=== PATIENT | male | born 1985 | race Caucasian/White ===

== ENCOUNTER 2023-06-13 17:07 | Emergency (ER) | payer MEDICAID ==
[~2023-06-13] VITALS: Ht 167.6 cm; Wt 76.2 kg
[~2023-06-13 17:07] MED LIST: ALBU8TAB INH; ALPR-624 PO; ATRIN INH; IPRA3AMP31 IH; OXCA300T4 PO; PALI3TAB3 PO; PROC-8 PO; RANI-648 PO
[2023-06-13 17:31] VITALS: PULSE 107; RESP 16; O2SAT 97
== END 2023-06-13 23:47 | disposition left against medical advice (07) ==
LOC: ER 17:08
DX: L08.89 Other specified local infections of the skin and subcutaneous tissue (principal); Z53.21 Procedure and treatment not carried out due to patient leaving prior to being seen by health care provider
CPT/HCPCS: 99281

== ENCOUNTER 2023-06-26 10:39 | Emergency (ER) | payer MEDICAID ==
[~2023-06-26] VITALS: Ht 167.6 cm; Wt 75.9 kg
[2023-06-26 11:19] VITALS: BP 131/72; PULSE 106; RESP 16; TEMP 98.1; O2SAT 98
== END 2023-06-26 15:47 | disposition left against medical advice (07) ==
LOC: ER 10:40
DX: M79.641 Pain in right hand (principal); Z53.21 Procedure and treatment not carried out due to patient leaving prior to being seen by health care provider; W25.XXXA Contact with sharp glass, initial encounter; Y93.89 Activity, other specified; Y92.89 Other specified places as the place of occurrence of the external cause; Y99.8 Other external cause status
CPT/HCPCS: 73130; 99281

== ENCOUNTER 2023-07-02 13:06 | Emergency (ER) | payer MEDICAID ==
[~2023-07-02] VITALS: Ht 167.6 cm; Wt 85.0 kg
[2023-07-02 13:37] VITALS: BP 138/85; PULSE 107; RESP 18; TEMP 97.8; O2SAT 98
[2023-07-02] MEDS ORDERED: LIDOcaine/epinephrine/tetracaine TOPICAL sol 3 ML syringe TOP ONE (15:10)
[2023-07-02] MEDS ORDERED: SULF1TAB49 PO (15:48)
--- NOTE | 2023-07-02 16:58 | NUR ---
pt left without receiving dc paperwork. Attempted to call pt, no answer, number in chart invalid.
== END 2023-07-02 17:02 | disposition home or self-care (01) ==
LOC: ER 13:06
DX: S60.420A Blister (nonthermal) of right index finger, initial encounter (principal); I10 Essential (primary) hypertension; J44.9 Chronic obstructive pulmonary disease, unspecified; F12.90 Cannabis use, unspecified, uncomplicated; Z88.8 Allergy status to other drugs, medicaments and biological substances; Z88.5 Allergy status to narcotic agent; Z88.6 Allergy status to analgesic agent; Z91.030 Bee allergy status; Z91.041 Radiographic dye allergy status; Z79.899 Other long term (current) drug therapy; X58.XXXA Exposure to other specified factors, initial encounter; Y93.89 Activity, other specified; Y92.89 Other specified places as the place of occurrence of the external cause; Y99.8 Other external cause status
CPT/HCPCS: 10140; 87070; 87077; 87186; 99284; J3490; 99283; A6449

== ENCOUNTER 2023-09-03 03:30 | Emergency (ER) | payer MEDICAID, OTHER ==
[~2023-09-03] VITALS: Ht 167.6 cm; Wt 75.0 kg
[2023-09-03 03:33] VITALS: BP 176/119; PULSE 89; RESP 20; TEMP 98; O2SAT 100
[2023-09-03] MEDS ORDERED: acetaminophen 1,000mg/100ml IV 100 ML IV STA (03:39)
[2023-09-03] MEDS ORDERED: ondansetron/PF 4mg/2ml inj IV ONE (03:45)
[2023-09-03] MEDS ORDERED: normal saline 1000ML IV soln IVB ONE (03:45)
[2023-09-03 04:07] LABS: BASOPHILS % (AUTO) 0.7 % (0-1); EOSINOPHILS # (AUTO) 0.2 X10'3 (0-0.9); EOSINOPHILS % (AUTO) 2.4 % (0-6); HEMATOCRIT 47.1 % (42.0-52.0); HEMOGLOBIN 16.2 g/dl (14.0-17.9); LYMPHOCYTES # (AUTO) 2.6 X10'3 (1.1-4.8); LYMPHOCYTES % (AUTO) 35.3 % (21-51); MEAN CORPUSCULAR HEMOGLOBIN 30.5 PG (27.0-31.0); MEAN CORPUSCULAR HGB CONC 34.5 g/dL (33.0-36.5); MEAN CORPUSCULAR VOLUME 88.5 FL (78-98); MEAN PLATELET VOLUME 6.4 FL (7.4-10.4); MONOCYTES # (AUTO) 0.6 X10'3 (0-0.9); NEUTROPHILS # (AUTO) 3.9 X10'3 (1.8-7.7); NEUTROPHILS % (AUTO) 53.6 % (42-75); PLATELET COUNT 323 X10'3 (140-440); RED BLOOD COUNT 5.33 X10'6 (4.70-6.10); RED CELL DISTRIBUTION WIDTH 13.7 % (11.5-14.5); WHITE BLOOD COUNT 7.3 X10'3 (4.5-11.0)
[2023-09-03 04:14] LABS: ALANINE AMINOTRANSFERASE 44 U/L (12-78); ALBUMIN 4.3 G/DL (3.4-5.0); ALBUMIN/GLOBULIN RATIO 1.2 (1.1-1.5); ALKALINE PHOSPHATASE 112 IU/L (46-116); ANION GAP 11 (8-16); ASPARTATE AMINO TRANSFERASE 18 U/L (10-37); BILIRUBIN,TOTAL 0.3 MG/DL (0.1-1.0); BLOOD UREA NITROGEN 15 MG/DL (7-18); BUN/CREATININE RATIO 14.6 (10.0-20.0); CALCIUM 10.1 MG/DL (8.5-10.1); CHLORIDE 102 MMOL/L (99-107); CREATININE 1.03 MG/DL (0.60-1.10); GLUCOSE 81 MG/DL (70-104); LIPASE 36 U/L (16-77); POTASSIUM 3.9 MMOL/L (3.5-5.1); SODIUM 138 MMOL/L (135-145); TOTAL CARBON DIOXIDE 25.3 MMOL/L (24-32); eCRCL 89 ML/MIN; eGFR 82 ML/MIN
== END 2023-09-03 06:47 ==
LOC: EEVIPCON 03:31 → ER 03:31
DX: R10.31 Right lower quadrant pain (principal); I10 Essential (primary) hypertension; J44.9 Chronic obstructive pulmonary disease, unspecified; F12.90 Cannabis use, unspecified, uncomplicated; Z88.5 Allergy status to narcotic agent; Z88.6 Allergy status to analgesic agent; Z91.030 Bee allergy status; Z79.899 Other long term (current) drug therapy
CPT/HCPCS: 36415; 74176; 80053; 83690; 85025; 96374; 96375; 99285; J0131; J2405; J7030